=== PATIENT | female | born 1995 | race African-American/Black ===

== ENCOUNTER 2016-10-22 13:55 | Emergency (ER) | payer OTHER ==
[~2016-10-22] VITALS: Ht 149.8 cm; Wt 54.4 kg
[~2016-10-22 13:55] MED LIST: AMOXICILLIN500 M2 PO; AMOXICILLIN500 MG PO; BACTRIM DS 8001 TA1 PO; CETIRIZINE HYDR10 MG PO; CLINDAMYCIN HC300 MG PO; CORTISONE; CORTISPORIN SUS10 ML OT; CYCLOBENZAPRINE5 M3 PO; DIFLUCAN150 MG PO; HYDROCODONE BIT1 T11 PO; MACRODANTIN100 MG PO; MEDROL DOSEPAK4 MG PO; NAPROSYN500 MG PO; PREDISONE; PREDNICOT20 MG PO; PRENATAL1 TA3 PO; PRENATAL1 TA7 PO; PYRIDIUM200 MG PO; SMZ/TMP DS TAB 800; SPRINTEC 35 MCG1 TA1 PO; TYLENOL W/CODEI1 TA7 PO; VIBRAMYCIN100 MG PO; ZITHROMAX; ZITHROMAX Z PA250 MG PO; [UNRECOGNIZED DRUG - OTHER]
[2016-10-22] MEDS ORDERED: ULTRAM50 MG PO (15:32)
[2016-10-22] MEDS ORDERED: NAPROSYN500 MG PO (15:32)
== END 2016-10-22 17:02 | disposition home or self-care (01) ==
LOC: ED 13:55
DX: M79.672 Pain in left foot (principal); Z88.1 Allergy status to other antibiotic agents; F17.200 Nicotine dependence, unspecified, uncomplicated

== ENCOUNTER 2016-12-15 19:23 | Emergency (ER) | payer OTHER ==
[~2016-12-15] VITALS: Ht 152.4 cm; Wt 54.4 kg
[~2016-12-15 19:23] MED LIST changes: +ULTRAM50 MG PO
[2016-12-15 19:47] LABS: BILIRUBIN NEGATIVE (NEGATIVE); BLOOD NEGATIVE (NEGATIVE); CLARITY SL CLOUDY (CLEAR); COLOR YELLOW (YELLOW); GLUCOSE NEGATIVE (NEGATIVE); KETONE NEGATIVE (NEGATIVE); LEUKO ESTERASE 1+ (NEGATIVE); NITRITE NEGATIVE (NEGATIVE); SPECIFIC GRAVITY 1.015 (1.005-1.030); UROBILINOGEN 0.2 E.U./dl (0.2-1.0)
[2016-12-15 19:50] LABS: BASO % 0.3 % (0.0-1.0); EOS # 0.1 10*3/uL (0.0-0.4); EOS % 1.3 % (1.0-4.0); HEMATOCRIT 37.8 % (37.0-47.0); HEMOGLOBIN 12.2 g/dl (12.0-16.0); LYMPH # 2.6 10*3/uL (1.3-4.4); LYMPH % 37.4 % (27.0-41.0); MEAN CELL VOLUME 88.1 fl (81.0-99.0); MEAN CORPUSCULAR HGB 28.4 pg (27.0-31.0); MEAN CORPUSCULAR HGB CONC 32.3 g/dl (33.0-37.0); MEAN PLATELET VOLUME 10.4 fl (9.6-12.3); MONO # 0.5 10*3/uL (0.1-1.0); MONO % 6.8 % (3.0-9.0); NEUT # 3.7 10*3/uL (2.3-7.9); NEUT % 54.1 % (47.0-73.0); PLATELET COUNT AUTOMATED 278 10*3/uL (130-400); RED BLOOD COUNT 4.29 10*6/uL (4.10-5.10); RED CELL DISTRI WIDTH 12.2 % (0-14.5); WHITE BLOOD COUNT 6.9 10*3/uL (4.8-10.8)
[2016-12-15 19:53] LABS: BACTERIA 1+; EPITHELIAL CELLS 21-30
[2016-12-15 20:07] LABS: ALBUMIN 3.5 gm/dl (3.1-4.5); ALKALINE PHOSPHATASE 48 U/L (45-117); BUN 11 mg/dl (7-24); CHLORIDE 110 mmol/L (98-107); LIPASE 251 U/L (73-393); POTASSIUM 3.5 mmol/L (3.5-5.1); SGOT/AST 16 IU/L (3-35); SGPT/ALT 15 U/L (12-78); SODIUM 142 mmol/L (136-145); TOTAL PROTEIN 7.1 gm/dL (6.4-8.2)
[2016-12-15] MEDS ORDERED: PYRIDIUM100 MG PO (20:17)
[2016-12-15] MEDS ORDERED: SEPTDS PO (20:17)
== END 2016-12-15 20:31 | disposition home or self-care (01) ==
LOC: ED 19:23
PROVIDERS: Nurse Practitioner Family
DX: N30.00 Acute cystitis without hematuria (principal); Z88.1 Allergy status to other antibiotic agents; F17.200 Nicotine dependence, unspecified, uncomplicated

== ENCOUNTER 2017-02-12 12:59 | Emergency (ER) | payer SELFPAY ==
[~2017-02-12] VITALS: Ht 152.4 cm; Wt 54.4 kg
[~2017-02-12 12:59] MED LIST changes: +PYRIDIUM100 MG PO; +SEPTDS PO
[2017-02-12] MEDS ORDERED: ZOFRAN ODT4 MG SL (14:32)
== END 2017-02-12 14:36 | disposition home or self-care (01) ==
LOC: ED 12:59
DX: B00.9 Herpesviral infection, unspecified (principal); R11.2 Nausea with vomiting, unspecified; F17.200 Nicotine dependence, unspecified, uncomplicated; F10.10 Alcohol abuse, uncomplicated; Z79.899 Other long term (current) drug therapy; Z88.8 Allergy status to other drugs, medicaments and biological substances

== ENCOUNTER 2017-06-24 16:55 | Emergency (ER) | payer OTHER ==
[~2017-06-24] VITALS: Ht 149.8 cm; Wt 56.7 kg
[~2017-06-24 16:55] MED LIST changes: +ZOFRAN ODT4 MG SL
[2017-06-24] MEDS ORDERED: TAMIFLU 75MG CA75 MG PO (17:53)
[2017-06-24] MEDS ORDERED: ZOFRAN4 MG PO (17:53)
== END 2017-06-24 19:13 | disposition home or self-care (01) ==
LOC: ED 16:55
DX: J06.9 Acute upper respiratory infection, unspecified (principal); R05 Cough; R09.81 Nasal congestion; F17.200 Nicotine dependence, unspecified, uncomplicated; Z20.828 Contact with and (suspected) exposure to other viral communicable diseases; Z98.890 Other specified postprocedural states; Z88.1 Allergy status to other antibiotic agents; Z88.8 Allergy status to other drugs, medicaments and biological substances

== ENCOUNTER 2017-06-29 17:03 | Emergency (ER) | payer OTHER ==
[~2017-06-29] VITALS: Ht 149.8 cm; Wt 56.7 kg
[~2017-06-29 17:03] MED LIST changes: +TAMIFLU 75MG CA75 MG PO; +ZOFRAN4 MG PO
[2017-06-29] MEDS ORDERED: ROBITUSSIN DM 105 ML PO (18:32)
== END 2017-06-29 18:39 | disposition home or self-care (01) ==
LOC: ED 17:03
DX: J06.9 Acute upper respiratory infection, unspecified (principal); J18.9 Pneumonia, unspecified organism; F10.10 Alcohol abuse, uncomplicated; Z88.8 Allergy status to other drugs, medicaments and biological substances; Z79.899 Other long term (current) drug therapy

== ENCOUNTER 2018-02-15 13:37 | Emergency (ER) | payer SELFPAY ==
[~2018-02-15] VITALS: Ht 152.4 cm; Wt 59.0 kg
[~2018-02-15 13:37] MED LIST changes: +ROBITUSSIN DM 105 ML PO
[2018-02-15] MEDS ORDERED: ROBITUSSIN5 ML PO (15:05)
== END 2018-02-15 15:11 | disposition home or self-care (01) ==
LOC: ED 13:37
DX: J06.9 Acute upper respiratory infection, unspecified (principal); F10.10 Alcohol abuse, uncomplicated; Z88.8 Allergy status to other drugs, medicaments and biological substances; Z88.5 Allergy status to narcotic agent

== ENCOUNTER 2018-04-15 21:25 | Emergency (ER) | payer SELFPAY ==
[~2018-04-15] VITALS: Ht 152.4 cm; Wt 59.0 kg
[~2018-04-15 21:25] MED LIST changes: +ROBITUSSIN5 ML PO
[2018-04-15] MEDS ORDERED: ZITHROMAX250 MG PO (22:32)
[2018-05-24] MEDS ORDERED: TAMIFLU 75MG CA75 MG PO (12:21)
== END 2018-04-16 00:24 | disposition home or self-care (01) ==
LOC: ED 21:25
DX: S00.03XA Contusion of scalp, initial encounter (principal); J02.0 Streptococcal pharyngitis; R11.10 Vomiting, unspecified; Z88.1 Allergy status to other antibiotic agents; Z88.2 Allergy status to sulfonamides; Y08.89XA Assault by other specified means, initial encounter; Y93.89 Activity, other specified; Y92.89 Other specified places as the place of occurrence of the external cause; Y99.8 Other external cause status

== ENCOUNTER 2018-11-12 13:54 | Emergency (ER) | payer OTHER ==
[~2018-11-12] VITALS: Ht 152.4 cm; Wt 68.0 kg
[~2018-11-12 13:54] MED LIST changes: +ZITHROMAX250 MG PO
== END 2018-11-12 15:03 | disposition left against medical advice (07) ==
LOC: ED 13:54
DX: M79.621 Pain in right upper arm (principal); M79.89 Other specified soft tissue disorders; Z53.21 Procedure and treatment not carried out due to patient leaving prior to being seen by health care provider

== ENCOUNTER → 2018-11-13 | Outpatient (CLI) | payer OTHER | END | disposition home or self-care (01) | LOC: US 12:14 | DX: I80.8 Phlebitis and thrombophlebitis of other sites (principal) ==

== ENCOUNTER 2018-12-23 00:31 | Emergency (ER) | payer OTHER ==
[~2018-12-23] VITALS: Ht 152.4 cm; Wt 68.0 kg
[2018-12-23 01:39] LABS: BILIRUBIN NEGATIVE (NEGATIVE); BLOOD NEGATIVE (NEGATIVE); CLARITY CLEAR (CLEAR); COLOR YELLOW (YELLOW); GLUCOSE NEGATIVE (NEGATIVE); KETONE NEGATIVE (NEGATIVE); LEUKO ESTERASE NEGATIVE (NEGATIVE); NITRITE NEGATIVE (NEGATIVE); PH 7.5 (5.0-9.0); SPECIFIC GRAVITY 1.015 (1.005-1.030); UROBILINOGEN 0.2 E.U./dl (0.2-1.0)
[2018-12-23 01:45] LABS: WBC 0-2 wbc/hpf (0-5)
[2018-12-23 01:46] LABS: RBC 0-2 rbc/hpf (0-2)
== END 2018-12-23 02:12 | disposition home or self-care (01) ==
LOC: ED 00:31
PROVIDERS: Nurse Practitioner Family
DX: R30.0 Dysuria (principal); R35.0 Frequency of micturition; R51 Headache; K59.00 Constipation, unspecified; Z88.1 Allergy status to other antibiotic agents

== ENCOUNTER 2019-01-02 16:20 | Emergency (ER) | payer OTHER ==
[~2019-01-02] VITALS: Ht 152.4 cm; Wt 68.0 kg
[2019-01-02] MEDS ORDERED: AMOXICILLIN500 M2 PO (17:15)
== END 2019-01-02 17:26 | disposition home or self-care (01) ==
LOC: ED 16:20
DX: J32.9 Chronic sinusitis, unspecified (principal); H66.92 Otitis media, unspecified, left ear; Z88.1 Allergy status to other antibiotic agents

== ENCOUNTER 2019-02-03 20:29 | Emergency (ER) | payer OTHER ==
[~2019-02-03] VITALS: Ht 152.4 cm; Wt 68.0 kg
[2019-02-03 21:10] LABS: BILIRUBIN NEGATIVE (NEGATIVE); BLOOD TRACE-INTACT (NEGATIVE); CLARITY SL CLOUDY (CLEAR); COLOR YELLOW (YELLOW); GLUCOSE NEGATIVE (NEGATIVE); KETONE NEGATIVE (NEGATIVE); LEUKO ESTERASE 2+ (NEGATIVE); NITRITE NEGATIVE (NEGATIVE); UROBILINOGEN 0.2 E.U./dl (0.2-1.0)
[2019-02-03 21:18] LABS: BACTERIA 2+; MUCOUS TRACE; RBC 0-2 rbc/hpf (0-2); WBC TNTC wbc/hpf (0-5)
== END 2019-02-03 22:19 | disposition home or self-care (01) ==
LOC: ED 20:29
PROVIDERS: Physician Assistant
DX: N89.8 Other specified noninflammatory disorders of vagina (principal); Z88.1 Allergy status to other antibiotic agents; Z88.2 Allergy status to sulfonamides; Z20.2 Contact with and (suspected) exposure to infections with a predominantly sexual mode of transmission

== ENCOUNTER 2019-08-01 15:18 | Emergency (ER) | payer OTHER ==
[~2019-08-01] VITALS: Ht 152.4 cm; Wt 69.4 kg
[2019-08-01 16:02] LABS: BILIRUBIN NEGATIVE (NEGATIVE); BLOOD NEGATIVE (NEGATIVE); CLARITY CLOUDY (CLEAR); COLOR YELLOW (YELLOW); GLUCOSE NEGATIVE (NEGATIVE); KETONE NEGATIVE (NEGATIVE); LEUKO ESTERASE 2+ (NEGATIVE); NITRITE NEGATIVE (NEGATIVE); PH 7.5 (5.0-9.0); SPECIFIC GRAVITY 1.005 (1.005-1.030)
[2019-08-01 16:19] LABS: BACTERIA 4+; EPITHELIAL CELLS TNTC; MUCOUS TRACE; RBC 0-2 rbc/hpf (0-2)
== END 2019-08-01 16:38 | disposition home or self-care (01) ==
LOC: ED 15:18
PROVIDERS: Emergency Medicine
DX: O21.8 Other vomiting complicating pregnancy (principal); O26.891 Other specified pregnancy related conditions, first trimester; F17.200 Nicotine dependence, unspecified, uncomplicated; Z79.899 Other long term (current) drug therapy; Z88.8 Allergy status to other drugs, medicaments and biological substances; Z3A.01 Less than 8 weeks gestation of pregnancy

== ENCOUNTER 2020-05-15 13:44 | Emergency (ER) | payer OTHER | END 2020-05-15 14:01 | disposition left against medical advice (07) | LOC: ED 13:44 | DX: R09.89 Other specified symptoms and signs involving the circulatory and respiratory systems (principal); H93.90 Unspecified disorder of ear, unspecified ear; Z53.21 Procedure and treatment not carried out due to patient leaving prior to being seen by health care provider ==

== ENCOUNTER 2021-02-21 13:39 | Emergency (ER) | payer OTHER ==
[~2021-02-21] VITALS: Wt 77.1 kg
[2021-02-21 17:11] LABS: BASO % 0.3 % (0.0-1.0); EOS # 0.1 10*3/uL (0.0-0.4); EOS % 1.5 % (1.0-4.0); HEMATOCRIT 43.4 % (37.0-47.0); LYMPH # 2.3 10*3/uL (1.3-4.4); LYMPH % 27.2 % (27.0-41.0); MEAN CELL VOLUME 90.6 fl (81.0-99.0); MEAN PLATELET VOLUME 10.2 fl (9.6-12.3); MONO # 0.7 10*3/uL (0.1-1.0); MONO % 7.6 % (3.0-9.0); NEUT # 5.4 10*3/uL (2.3-7.9); NEUT % 63.2 % (47.0-73.0); PLATELET COUNT AUTOMATED 398 10*3/uL (130-400); RED BLOOD COUNT 4.79 10*6/uL (4.10-5.10); RED CELL DISTRI WIDTH 11.9 % (0-14.5); WHITE BLOOD COUNT 8.6 10*3/uL (4.8-10.8)
[2021-02-21 17:28] LABS: ALBUMIN 3.2 gm/dl (3.1-4.5); ALKALINE PHOSPHATASE 58 U/L (45-117); BUN 9 mg/dl (7-24); CHLORIDE 111 mmol/L (98-107); CREATININE 0.83 mg/dL (0.55-1.02); POTASSIUM 3.4 mmol/L (3.5-5.1); SGOT/AST 24 IU/L (3-35); SGPT/ALT 37 U/L (12-78); SODIUM 141 mmol/L (136-145); TOTAL PROTEIN 7.6 gm/dL (6.4-8.2)
[2021-02-21 18:38] LABS: BILIRUBIN Negative (Negative); BLOOD 3+ (Negative); CLARITY Cloudy (Clear); COLOR Orange (Yellow); GLUCOSE Negative (Negative); KETONE Negative (Negative); LEUKO ESTERASE Trace (Negative); NITRITE Negative (Negative); SPECIFIC GRAVITY >= 1.030 (1.001-1.030)
[2021-02-21 18:43] LABS: PH 8.5 (4.5-8.0)
[2021-02-21 18:44] LABS: BACTERIA TRACE; EPITHELIAL CELLS 0-2; RBC TNTC rbc/hpf (0-2); WBC 0-2 wbc/hpf (0-5)
[2021-02-21] MEDS ORDERED: HYDROCODONE-AC1 EAC1 PO (20:20)
[2021-02-21] MEDS ORDERED: PREDNISONE20 M1 PO (20:20)
[2021-02-21] MEDS ORDERED: METHOCARBAMOL500 M1 PO (20:20)
== END 2021-02-21 20:47 | disposition home or self-care (01) ==
LOC: ED 13:39
PROVIDERS: Physician Assistant
DX: M43.6 Torticollis (principal); Z88.1 Allergy status to other antibiotic agents